=== PATIENT | female | born 1935 | race Caucasian/White ===

== ENCOUNTER 2017-10-06 06:02 | Day surgery (SDC) | payer OTHER ==
[2017-10-06] MEDS ORDERED: BUPIVACAINE 0.25%/EPI (MDV) 50 ML VIAL INJ (07:00)
[2017-10-06] MEDS ORDERED: LACTATED RINGER'S 1,000 ML IV* (07:00)
[2017-10-06] MEDS ORDERED: VASOPRESSIN 20 UNITS INJ (07:39)
[2017-10-06] MEDS ORDERED: FENTAnyl 50 MCG/ML VIAL (08:10)
[2017-10-06] MEDS ORDERED: PROPOFOL 20 ML (08:29)
[2017-10-06] MEDS ORDERED: ROCURONIUM 50 MG INJ (08:29)
[2017-10-06] MEDS ORDERED: LIDOCAINE 100 MG SYRINGE (08:29)
[2017-10-06] MEDS ORDERED: SUCCINYLCHOLINE CHLORIDE 100 MG/5 ML SYG IV (08:29)
[2017-10-06] MEDS ORDERED: CEFAZOLIN 1 GM INJ (08:29)
[2017-10-06] MEDS ORDERED: SUGAMMADEX SODIUM 200 MG/2 ML VIAL IV (08:30)
[2017-10-06] MEDS ORDERED: LACTATED RINGER'S 1,000 ML IV (09:38)
[2017-10-06] MEDS ORDERED: OXYCODONE/ACETAMINOPHEN (5/325) TAB PO (10:00)
[2017-10-06] MEDS ORDERED: morphine 2 MG INJ IV (10:00)
[2017-10-06] MEDS ORDERED: MEPERIDINE 25 MG INJ IV (10:00)
[2017-10-06] MEDS ORDERED: ACETAMINOPHEN 325 MG TAB PO (10:00)
[2017-10-06] MEDS ORDERED: IBUPROFEN 600 MG TAB PO (10:00)
[2017-10-06] MEDS ORDERED: ONDANSETRON 4 MG INJ IV ×2 (10:00)
[2017-10-06] MEDS ORDERED: DIPHENHYDRAMINE 50 MG INJ IV (10:00)
[2017-10-06] MEDS ORDERED: FENTAnyl 50 MCG/ML VIAL IV ×2 (10:00)
[2017-10-06] MEDS ORDERED: HYDROmorphONE (0.2 MG/ML) 10ML SYG IV ×2 (10:00)
[2017-10-06] MEDS ORDERED: ALBUTEROL 0.083% (NEB) 2.5 MG/3 ML AMP HHN (10:00)
[2017-10-06] MEDS ORDERED: METOCLOPRAMIDE 10 MG INJ IV (10:00)
== END 2017-10-06 11:30 | disposition home or self-care (01) ==
LOC: SDS 06:02
DX: N81.4 Uterovaginal prolapse, unspecified (principal); I10 Essential (primary) hypertension; E66.01 Morbid (severe) obesity due to excess calories; Z68.41 Body mass index [BMI] 40.0-44.9, adult
CPT/HCPCS: 57250; 86850; 86900; 86901